=== PATIENT | female | born 1985 | race Caucasian/White ===

== ENCOUNTER 2019-07-31 11:37 | Outpatient (CLI) | payer MEDICARE, SELFPAY ==
[2019-07-31 11:55] LABS: Hematocrit 43.7 % (35.0-49.0); Hemoglobin 14.4 g/dL (12.0-15.0); Mean Corpuscular Hemoglobin 31.4 pg (27.0-31.0); Mean Corpuscular Volume 95.4 fL (78.0-102.0); Mean Platelet Volume 8.4 fl (9.2-11.8); Platelet Count Result 255 K/mm3 (150-420); Red Blood Count 4.58 M/mm3 (4.20-5.40); Red Cell Distribution Width 12.4 % (11.6-14.4); White Blood Count 5.7 K/mm3 (4.8-10.8)
[2019-07-31 13:07] LABS: Alanine Aminotransferase 65 U/L (14-59); Alkaline Phosphatase 78 U/L (46-116); Anion Gap 12.4 mmol/L (7-16); Aspartate Amino Transferase 38 U/L (15-37); Bilirubin,Total 0.2 mg/dL (0.00-1.00); Blood Urea Nitrogen 17 mg/dL (7-18); Calcium 9.8 mg/dL (8.5-10.1); Carbon Dioxide 30 mmol/L (21-32); Chloride 104 mmol/L (98-108); Estimated Glomerular Filt Rate > 60; Glucose 82 mg/dL (70-99); Osmolality Calculated 294 mOsm/kg (285-295); Potassium 4.4 mmol/L (3.5-5.1); Sodium 142 mmol/L (136-145); Total Protein 7.2 g/dL (6.4-8.2)
== END 2019-07-31 11:38 | disposition home or self-care (01) ==
DX: G40.319 Generalized idiopathic epilepsy and epileptic syndromes, intractable, without status epilepticus (principal)
CPT/HCPCS: 36415; 80053; 80175; 80203; 85027

== ENCOUNTER 2024-10-11 08:09 | Outpatient (CLI) | payer MEDICARE, SELFPAY ==
--- NOTE | ~2024-10-11 | PE_ITS ---
EXAMINATION: PET skull to mid thigh DATE: 10/11/2024 12:22 INDICATION: Squamous cell carcinoma of the right lower lobe TECHNIQUE: Blood glucose level was 80 mg/dL. 9.665 mCi of 18-fluorodeoxyglucose (18-FDG) was administ ered i.v. Low dose computed tomography (CT) images were acquired from the base of the brain to the pr oximal thighs for attenuation correction and anatomic localization. Positron emission tomography (PET ) images were acquired in the same distribution beginning 57 minutes after injection. Images includin g fused PET/CT images were reconstructed in axial, coronal, and sagittal planes. Automated exposure c ontrol technique was employed. The dose-length product was 576.23mGy-cm. COMPARISON: None FINDINGS: Head/neck: There is symmetric increased activity in the oral cavity, palatine tonsils, parotid glands, submandi bular glands, laryngeal muscles and ocular muscles without CT correlate, likely physiologic. No patho logically enlarged cervical lymphadenopathy or suspicious foci of increased FDG uptake in the visuali zed head or neck. There is a left-sided likely carotid body stimulator leads extending caudally to a subcutaneous left pectoral power supply. Chest: 4.9 x 4.0 cm FDG avid mass in the body of 18.9. There is an approximately 2.5 x 2.3 cm mass anterior to the major fissure in the perihilar right upper lobe, likely an enlarged and metastatic right hilar lymph node with maximal SUV of 17.3. Finally there is some increased FDG activity extending into the subcarinal region also suspicious for metastatic lymphadenopathy. There is a region of consolidation with associated bronchiectasis extending caudally from the previous noted mass at the superior segme nt right lower lobe and right hilum into the posterior basilar segment of the right lower lobe with m ild FDG uptake with maximal SUV of 5.5, likely representing postobstructive pneumonia. Left lung is c lear. No pleural effusion. Heart size is normal. Atherosclerotic coronary artery calcific location. N o pericardial effusion. Small amount of residual thymic tissue in the anterior mediastinum with typic al triangular appearance and mixed soft tissue and fat attenuation. Abdomen/pelvis/proximal thighs: Physiologic renal accumulation and excretion of FDG activity in the kidneys, bladder and along portio ns of ureters. Normal degree and heterogenous pattern of increased uptake throughout the liver withou t radiologic correlate or dominant FDG avid lesion. The gallbladder, pancreas, spleen and bilateral a drenal glands are normal. Mild to moderate uptake scattered throughout the bowels without radiologic correlate, also likely physiologic. The uterus is not identified and has likely been surgically resec anai. No other abnormal foci of increased FDG uptake or pathologically enlarged lymphadenopathy in the abdomen, pelvis or proximal thighs. Musculoskeletal: T1-2 and L2 compression fractures and L3 burst fracture without increased FDG uptake, likely chronic. No suspicious lytic, blastic or abnormally FDG avid bone lesions to suggest metastatic disease. IMPRESSION: 1. Prominent increased FDG uptake associated with a 4.9 cm mass in the superior segment of the right lower lobe consistent with primary lung cancer. 2. Increased uptake such with a 2.5 cm mass at the right hilum with additional increased FDG uptake i n the subcarinal region consistent with metastatic right hilar and mediastinal lymphadenopathy. 3. Consolidation with mild FDG activity and bronchiectatic changes in the posterior basilar segment o f the right lower lobe consistent with secondary postobstructive pneumonia. Reviewed, dictated and finalized at location A. IMPRESSION: 1. Prominent increased FDG uptake associated with a 4.9 cm mass in the superior segment of the right lower lobe consistent with primary lung cancer. 2. Increased uptake such with a 2.5 cm mass at the right hilum with additional increased FDG uptake in the subcarinal region consistent with metastatic right hilar and mediastinal lymphadenopathy. 3. Consolidation with mild FDG activity and bronchiectatic changes in the poste rior basilar segment of the right lower lobe consistent with secondary postobst ructive pneumonia.
[2024-10-11 09:36] LABS: Glucose Point of Care 80 mg/dl (65-105)
== END 2024-10-11 08:10 | disposition home or self-care (01) ==
PROVIDERS: PCP Family Medicine
DX: C34.31 Malignant neoplasm of lower lobe, right bronchus or lung (principal)
CPT/HCPCS: 78815; A9552